=== PATIENT | male | born 1965 | race Caucasian/White ===

== ENCOUNTER 2016-08-30 16:18 | Emergency (ER) | payer SELFPAY ==
[~2016-08-30] VITALS: Ht 162.6 cm; Wt 86.4 kg
[~2016-08-30 16:18] MED LIST: HYDR25TA PO
[2016-08-30 16:27] VITALS: BP 175/102
[2016-08-30] MEDS ORDERED: METF500T4 PO (16:32)
[2016-08-30 16:37] LABS: GLUCOSE COMMENT 1 Doctor Notified; GLUCOSE,POINT OF CARE 410 MG/DL (70-110)
[2016-08-30 17:42] LABS: APPEARANCE,URINE CLEAR (CLEAR); GLUCOSE, URINE (UA) >=1000 mg/dL (NEGATIVE); KETONES,URINE NEGATIVE (NEGATIVE); LEUKOCYTE ESTERASE ,URINE NEGATIVE (NEGATIVE); OCCULT BLOOD,URINE NEGATIVE (NEGATIVE); PH,URINE 6.5 (5.0-8.0); PROTEIN,URINE NEGATIVE (NEGATIVE)
[2016-08-30 17:45] LABS: ADD UA MICROSCOPIC YES; RBC,URINE 0-2 /HPF (0-2); WBC,URINE 0-2 /HPF (0-5)
== END 2016-08-30 18:11 | disposition left against medical advice (07) ==
LOC: EMS 16:20
DX: E11.65 Type 2 diabetes mellitus with hyperglycemia (principal); I10 Essential (primary) hypertension; F15.90 Other stimulant use, unspecified, uncomplicated; F17.210 Nicotine dependence, cigarettes, uncomplicated; Z53.21 Procedure and treatment not carried out due to patient leaving prior to being seen by health care provider
CPT/HCPCS: 82962; 99281

== ENCOUNTER 2024-01-11 11:41 | Inpatient (IN) | payer MEDICARE, MEDICAID ==
[~2024-01-11] VITALS: Ht 162.6 cm; Wt 96.8 kg
[~2024-01-11 11:41] MED LIST changes: +AMLO-258 PO; +ASPI-1450 PO; +ATOR40TA28 PO; +BUME1TAB50 PO; +CARV25 PO; +LISI-894 PO; +METF-444 PO
[2024-01-11 13:27] LABS: BASOPHILS % (AUTO) 0.9 % (0.0-2.0); EOSINOPHILS % (AUTO) 1.7 % (1.0-6.0); HEMATOCRIT 32.8 % (41-53); HEMOGLOBIN 10.8 g/dL (13.5-17.5); LYMPHOCYTES # (AUTO) 0.8 K/uL (1.0-4.8); LYMPHOCYTES % (AUTO) 11.2 % (22.0-44.0); MEAN CORPUSCULAR HEMOGLOBIN 34.5 pg (26.0-34.0); MEAN CORPUSCULAR VOLUME 105 fL (80-100); MONOCYTES # (AUTO) 0.7 K/uL (0.1-1.0); MONOCYTES % (AUTO) 8.9 % (2.0-9.0); NEUTROPHILS # (AUTO) 5.7 K/uL (1.8-7.7); NEUTROPHILS % (AUTO) 77.3 % (40.0-70.0); PLATELET COUNT (AUTO) 198 K/uL (150-450); RED BLOOD CELL COUNT(AUTO) 3.14 MIL/uL (4.50-5.90); RED CELL DISTRIBUTION WIDTH 15.1 % (11.5-14.5); WHITE BLOOD COUNT (AUTO) 7.4 K/uL (4.5-11.0)
[2024-01-11 13:40] LABS: CALCIUM, TOTAL 8.6 mg/dL (8.8-10.5); CREATININE 8.53 mg/dL (0.60-1.30); POTASSIUM 4.9 mmol/L (3.5-5.1)
[2024-01-11 13:45] LABS: TROPONIN I-HIGH SENSITIVITY 17 ng/L (<76)
[2024-01-11 13:47] LABS: BILIRUBIN,TOTAL 0.4 mg/dL (0.1-1.0)
[2024-01-11] MEDS ORDERED: ChlorproMAZINE HCL 10 MG TABLET PO PRN (21:45)
[2024-01-11 22:00] LABS: COVID AG,FIA SOURCE NASAL SWAB
[2024-01-11 22:33] LABS: SARS-COV2 (COVID) ANTIGEN,FIA Negative (Negative)
[2024-01-12] VITALS (8 sets, daily range): BP systolic 115–166; BP diastolic 72–94; PULSE 66–82; RESP 18–20; TEMP 98.5; O2SAT 18
[2024-01-12] MEDS: ZOLPIDEM TARTRATE 10 MG TABLET PO PRN (02:04)
[2024-01-12] MEDS: GABAPENTIN 100 MG CAPSULE PO SCH (08:27)
[2024-01-12] MEDS: RisperiDONE 0.5 MG TABLET PO SCH (09:29)
[2024-01-12] MEDS ORDERED: ACETAMINOPHEN 325 MG TABLET PO PRN (17:30)
[2024-01-12] MEDS ORDERED: MAG HYDROX/ALUMINUM HYD/SIMETH ES 30 ML SUSPENSION UDCUP PO PRN (17:30)
[2024-01-12] MEDS ORDERED: MAGNESIUM HYDROXIDE SUSPENSION 30 ML UDCUP PO PRN (17:30)
[2024-01-12] MEDS ORDERED: HydrOXYzine PAMOATE 50 MG CAPSULE PO PRN (17:30)
[2024-01-12] MEDS ORDERED: LOPERAMIDE HCL 2 MG CAPSULE PO PRN (17:30)
[2024-01-12] MEDS ORDERED: GuaiFENesin/D-METHORPHAN [SUGAR-FREE] 200-20MG/10 ML SYRUP UDCUP PO PRN (17:30)
[2024-01-12] MEDS ORDERED: PROMETHAZINE HCL 25 MG TABLET PO PRN (17:30)
[2024-01-12] MEDS ORDERED: OLANZapine 5 MG RAPDIS TABLET PO PRN (17:30)
[2024-01-12] MEDS: DONEPEZIL HCL 10 MG TABLET PO SCH (21:00)
[2024-01-12] MEDS: MELATONIN 5 MG TABLET PO SCH (23:52)
[2024-01-13] MEDS: LORazepam 2 MG TABLET PO PRN (05:57)
[2024-01-13] MEDS ORDERED: ALBUTEROL SULFATE HFA 90 MCG/PUFF 8 GM INHALER IH PRN (07:15)
[2024-01-13] MEDS ORDERED: LOPERAMIDE HCL 2 MG CAPSULE PO PRN (07:15)
[2024-01-13] MEDS ORDERED: BACITRACIN 28 GM OINTMENT TP PRN (07:15)
[2024-01-13] MEDS ORDERED: MAG HYDROX/ALUMINUM HYD/SIMETH ES 30 ML SUSPENSION UDCUP PO PRN (07:15)
[2024-01-13] MEDS ORDERED: DEXTROSE 50%-WATER 25 GM/50 ML SYRINGE IVP PRN (07:15)
[2024-01-13] MEDS ORDERED: OMEPRAZOLE 20 MG CAPSULE PO PRN (07:15)
[2024-01-13] MEDS ORDERED: ONDANSETRON 4 MG TABLET PO PRN (07:15)
[2024-01-13] MEDS ORDERED: PETROLATUM,WHITE 28 GM JELLY TP PRN (07:15)
[2024-01-13] MEDS ORDERED: BENZOCAINE/MENTHOL LOZENGE PO PRN (07:15)
[2024-01-13] MEDS ORDERED: CloNIDine HCL 0.1 MG TABLET PO PRN (07:15)
[2024-01-13] MEDS ORDERED: DOCUSATE SODIUM 100 MG CAPSULE PO PRN (07:15)
[2024-01-13] MEDS ORDERED: MAGNESIUM HYDROXIDE SUSPENSION 30 ML UDCUP PO PRN (07:15)
[2024-01-13] MEDS ORDERED: ACETAMINOPHEN 325 MG TABLET PO PRN (07:15)
[2024-01-13 07:41] LABS: HEMOGLOBIN A1C 5.3 % (3.8-5.6)
[2024-01-13 07:45] LABS: CHOL/HDL RATIO 2.2 (4.2-7.3); FREE T4 (FREE THYROXINE) 0.97 ng/dL (0.76-1.46); THYROID STIMULATING HORMONE 1.27 uIU/mL (0.36-3.74)
[2024-01-13 08:15] VITALS: BP 136/76; PULSE 78; RESP 18; TEMP 98.4; O2SAT 94
[2024-01-13] MEDS: NICOTINE 21 MG/24 HOUR PATCH TD SCH (09:00)
[2024-01-13] MEDS: BUMETANIDE 1 MG TABLET PO SCH (09:02)
[2024-01-13] MEDS: MULTIVITAMINS WITH MINERALS, THERAPEUTIC TABLET PO SCH (09:03)
[2024-01-13] MEDS: NALTREXONE HCL 50 MG TABLET PO SCH (09:03)
[2024-01-13] MEDS: FOLIC ACID 1 MG TABLET PO SCH (09:03)
[2024-01-13] MEDS: ATORVASTATIN CALCIUM 40 MG TABLET PO SCH (09:03)
[2024-01-13] MEDS: DULoxetine HCL 20 MG CAPSULE PO SCH (09:03)
[2024-01-13] MEDS: CARVEDILOL 25 MG TABLET PO SCH (09:03)
[2024-01-13] MEDS: THIAMINE 100 MG TABLET PO SCH (09:03)
[2024-01-13] MEDS: LISINOPRIL 20 MG TABLET PO SCH (09:03)
[2024-01-13] MEDS: AmLODIPine BESYLATE 10 MG TABLET PO SCH (09:03)
[2024-01-13] MEDS: ASPIRIN 81 MG CHEWABLE TABLET PO SCH (09:03)
[2024-01-13 11:50] LABS: GLUCOMETER DEV NAME(LOC) 3E.I 2; GLUCOSE,POINT OF CARE 113 MG/DL (70-110)
[2024-01-13] MEDS: SEVELAMER CARBONATE 800 MG TABLET PO SCH (12:07)
[2024-01-13 17:40] LABS: GLUCOMETER DEV NAME(LOC) 3EX.2; GLUCOSE,POINT OF CARE 106 MG/DL (70-110)
[2024-01-13 20:30] LABS: GLUCOMETER DEV NAME(LOC) 3E.I 2; GLUCOSE,POINT OF CARE 135 MG/DL (70-110)
[2024-01-13 21:38] VITALS: RESP 18
[2024-01-14] VITALS (13 sets, daily range): BP systolic 107–140; BP diastolic 47–78; PULSE 60–72; RESP 17–18; TEMP 97.5–98.5; O2SAT 95–96
[2024-01-14 06:45] LABS: GLUCOMETER DEV NAME(LOC) 3E.I 2; GLUCOSE,POINT OF CARE 86 MG/DL (70-110)
[2024-01-14] MEDS: INSULIN LISPRO 100 UNITS/ML SQ PRN (07:10)
[2024-01-14 10:09] LABS: CALCIUM, TOTAL 8.1 mg/dL (8.8-10.5); CREATININE 6.63 mg/dL (0.60-1.30); POTASSIUM 4.7 mmol/L (3.5-5.1)
[2024-01-14 10:16] LABS: ALBUMIN 2.9 g/dL (3.4-5.0); BILIRUBIN,TOTAL 0.4 mg/dL (0.1-1.0); TOTAL PROTEIN, SERUM 6.8 g/dL (6.4-8.2)
[2024-01-14 17:23] LABS: GLUCOMETER DEV NAME(LOC) 3EX.2; GLUCOSE,POINT OF CARE 152 MG/DL (70-110)
[2024-01-14 20:30] LABS: GLUCOMETER DEV NAME(LOC) 3E.I 2; GLUCOSE,POINT OF CARE 113 MG/DL (70-110)
[2024-01-15 05:51] LABS: GLUCOMETER DEV NAME(LOC) 3E.I 2; GLUCOSE,POINT OF CARE 88 MG/DL (70-110)
[2024-01-15 08:42] VITALS: BP 126/62; PULSE 69; RESP 18; TEMP 98.4; O2SAT 99
[2024-01-15 11:46] LABS: GLUCOMETER DEV NAME(LOC) 3EX.2; GLUCOSE,POINT OF CARE 105 MG/DL (70-110)
[2024-01-15 16:50] LABS: GLUCOMETER DEV NAME(LOC) 3EX.2; GLUCOSE,POINT OF CARE 134 MG/DL (70-110)
[2024-01-15 20:52] VITALS: BP 132/71; PULSE 78; RESP 18; O2SAT 98
[2024-01-15 21:26] LABS: GLUCOMETER DEV NAME(LOC) 3E.I 2; GLUCOSE,POINT OF CARE 124 MG/DL (70-110)
[2024-01-16] VITALS (12 sets, daily range): BP systolic 77–161; BP diastolic 40–79; PULSE 60–70; RESP 18; TEMP 97.2–97.5; O2SAT 67–97
[2024-01-16 06:51] LABS: GLUCOMETER DEV NAME(LOC) 3E.I 2; GLUCOSE,POINT OF CARE 126 MG/DL (70-110)
[2024-01-16 08:41] LABS: BASOPHILS % (AUTO) 0.7 % (0.0-2.0); EOSINOPHILS % (AUTO) 1.8 % (1.0-6.0); HEMATOCRIT 34.9 % (41-53); HEMOGLOBIN 11.4 g/dL (13.5-17.5); LYMPHOCYTES % (AUTO) 15.2 % (22.0-44.0); MEAN CORPUSCULAR HGB CONC 32.8 G/dL (31.0-37.0); MEAN CORPUSCULAR VOLUME 104 fL (80-100); MONOCYTES # (AUTO) 0.6 K/uL (0.1-1.0); MONOCYTES % (AUTO) 9.3 % (2.0-9.0); NEUTROPHILS # (AUTO) 4.8 K/uL (1.8-7.7); PLATELET COUNT (AUTO) 204 K/uL (150-450); RED BLOOD CELL COUNT(AUTO) 3.36 MIL/uL (4.50-5.90); RED CELL DISTRIBUTION WIDTH 15.2 % (11.5-14.5); WHITE BLOOD COUNT (AUTO) 6.5 K/uL (4.5-11.0)
[2024-01-16 08:50] LABS: CALCIUM, TOTAL 8.1 mg/dL (8.8-10.5); CREATININE 8.66 mg/dL (0.60-1.30); MAGNESIUM 2.7 mg/dL (1.80-2.40); PHOSPHORUS 6.8 mg/dL (2.5-4.9)
[2024-01-16 08:54] LABS: POTASSIUM 6.6 mmol/L (3.5-5.1)
[2024-01-16] MEDS: ALBUMIN HUMAN 25%-12.5GM/50ML IV BOTTLE IV PRN (15:04)
[2024-01-16] MEDS: SODIUM ZIRCONIUM CYCLOSILICATE 5 GM POWDER PACKET PO SCH (17:05)
[2024-01-16 17:16] LABS: GLUCOMETER DEV NAME(LOC) 3EX.2; GLUCOSE,POINT OF CARE 151 MG/DL (70-110)
[2024-01-16] MEDS ORDERED: ALBUMIN HUMAN 25%-12.5GM/50ML IV BOTTLE IV ONE (17:59)
[2024-01-16 21:11] LABS: GLUCOMETER DEV NAME(LOC) 3E.I 2; GLUCOSE,POINT OF CARE 150 MG/DL (70-110)
[2024-01-17 06:41] LABS: GLUCOMETER DEV NAME(LOC) 3E.I 2; GLUCOSE,POINT OF CARE 91 MG/DL (70-110)
[2024-01-17 08:19] VITALS: BP 138/81; PULSE 68; RESP 18; TEMP 98.2; O2SAT 95
[2024-01-17] MEDS: DULoxetine HCL 30 MG CAPSULE PO SCH (09:57)
[2024-01-17 12:00] LABS: GLUCOMETER DEV NAME(LOC) 3EX.2; GLUCOSE,POINT OF CARE 96 MG/DL (70-110)
[2024-01-17 17:55] LABS: GLUCOMETER DEV NAME(LOC) 3EX.2; GLUCOSE,POINT OF CARE 89 MG/DL (70-110)
[2024-01-17 20:19] VITALS: BP 113/58; RESP 17; TEMP 97.6; O2SAT 95
[2024-01-17 20:31] LABS: GLUCOMETER DEV NAME(LOC) 3E.I 2; GLUCOSE,POINT OF CARE 136 MG/DL (70-110)
[2024-01-17] MEDS ORDERED: MELA5TAB40 PO (21:55)
[2024-01-17] MEDS ORDERED: DULO-114 PO (21:55)
[2024-01-17] MEDS ORDERED: GABA-1216 PO (21:55)
[2024-01-17] MEDS ORDERED: NALT50TA33 PO (21:55)
[2024-01-17] MEDS ORDERED: DONE-51 PO (21:55)
[2024-01-17] MEDS ORDERED: RISP0.5T80 PO (21:55)
[2024-01-18 06:01] LABS: GLUCOMETER DEV NAME(LOC) 3E.I 2; GLUCOSE,POINT OF CARE 73 MG/DL (70-110)
[2024-01-18 09:34] VITALS: BP 130/77; PULSE 62; RESP 17; TEMP 97.8; O2SAT 98
[2024-01-18] MEDS: SODIUM ZIRCONIUM CYCLOSILICATE 5 GM POWDER PACKET PO ONE (09:48)
[2024-01-18 11:50] LABS: GLUCOMETER DEV NAME(LOC) 3EX.2; GLUCOSE,POINT OF CARE 104 MG/DL (70-110)
[2024-01-18] MEDS ORDERED: SEVE800T38 PO (12:08)
[2024-01-18] MEDS ORDERED: FOLI-130 PO (12:08)
== END 2024-01-18 15:20 | DRG 885 ==
LOC: EMS 11:41 → 3EX 01-12 14:00
PROVIDERS: ADMIT Psychiatry & Neurology Psychiatry; ATTEND Psychiatry & Neurology Psychiatry
PROC: 5A1D70Z Performance of Urinary Filtration, Intermittent, Less than 6 Hours Per Day (ICD-10-PCS; principal; 2024-01-12)
PROC: GZHZZZZ Group Psychotherapy (ICD-10-PCS; 2024-01-12)
PROC: GZ51ZZZ Individual Psychotherapy, Behavioral (ICD-10-PCS; 2024-01-12)
PROC: 5A1D70Z Performance of Urinary Filtration, Intermittent, Less than 6 Hours Per Day (ICD-10-PCS; 2024-01-16)
DX: F25.0 Schizoaffective disorder, bipolar type (principal); N18.6 End stage renal disease; I13.2 Hypertensive heart and chronic kidney disease with heart failure and with stage 5 chronic kidney disease, or end stage renal disease; N25.81 Secondary hyperparathyroidism of renal origin; R45.851 Suicidal ideations; Z68.36 Body mass index [BMI] 36.0-36.9, adult; D63.1 Anemia in chronic kidney disease; E11.22 Type 2 diabetes mellitus with diabetic chronic kidney disease; I50.9 Heart failure, unspecified; K21.9 Gastro-esophageal reflux disease without esophagitis; J44.9 Chronic obstructive pulmonary disease, unspecified; F41.9 Anxiety disorder, unspecified; G47.00 Insomnia, unspecified; F17.210 Nicotine dependence, cigarettes, uncomplicated; Z20.822 Contact with and (suspected) exposure to COVID-19; K59.00 Constipation, unspecified; R62.7 Adult failure to thrive; E87.5 Hyperkalemia; F03.90 Unspecified dementia, unspecified severity, without behavioral disturbance, psychotic disturbance, mood disturbance, and anxiety; Z55.9 Problems related to education and literacy, unspecified; Z59.9 Problem related to housing and economic circumstances, unspecified; Z63.9 Problem related to primary support group, unspecified; Z65.3 Problems related to other legal circumstances; Z99.2 Dependence on renal dialysis; Z99.3 Dependence on wheelchair
CPT/HCPCS: 70450; 71045; 80048; 80053; 80061; 82962; 83036; 83735; 83880; 84100; 84132; 84439; 84443; 84484; 85025; 86592; 87340; 90935; 93005; 97163; 97530; 99285; G0378; P9047; 36415-L1; 36415-TC